=== PATIENT | female | born 1965 | race Two or more races ===

== ENCOUNTER 2018-06-30 17:09 | Emergency (ER) | payer OTHER ==
[~2018-06-30] VITALS: Ht 157.5 cm; Wt 57.6 kg
[2018-06-30] MEDS ORDERED: PROTONIX20 MG (17:31)
[2018-06-30] MEDS ORDERED: CARAFATE1 GM (17:31)
[2018-06-30] MEDS ORDERED: BENTYL10 MG/1 ML (17:31)
[2018-06-30] MEDS ORDERED: MACROBID 100 M100 MG PO (19:56)
== END 2018-06-30 20:08 | disposition home or self-care (01) ==
LOC: ER 17:09
DX: N39.0 Urinary tract infection, site not specified (principal)

== ENCOUNTER → 2018-08-31 | Emergency (ER) | payer OTHER ==
[~2018-08-31] VITALS: Ht 157.5 cm; Wt 55.3 kg
[~2018-08-31] MED LIST: BENTYL10 MG/1 ML; CARAFATE1 GM; MACROBID 100 M100 MG PO; PROTONIX20 MG
== END | disposition left against medical advice (07) ==
LOC: ER 21:26
DX: K59.09 Other constipation (principal); R10.84 Generalized abdominal pain